=== PATIENT | female | born 1970 | race Caucasian/White ===

== ENCOUNTER 2017-03-04 23:29 | Emergency (ER) | payer MEDICARE ==
[~2017-03-04 23:29] MED LIST: ACETAMINOPHEN PO; ALBUTEROL17 GM INH; ALPRAZOLAM; ALPRAZOLAM PO; AMBIEN PO; AMITRIPTYLINE H25 MG PO; AMITRYPTYLINE PO; AZMACORT; BACTRIM DS TABL1 TA1 PO; CIPRO PO; CLEOCIN HCL300 M1 PO; DEMEROL PO; DESYREL100 MG PO; FIORINAL CAPSUL1 CAP PO; HYDROCODON-ACE1 EAC4 PO; IBUPROFEN PO; KETOPROFEN PO; KLONOPIN2 MG; KLONOPIN2 MG PO; NAPROSYN500 MG PO; PAXIL PO; PAXIL30 MG; PAXIL30 MG PO; PEN-VEE K PO; PERCOCET; PERCOCET10 PO; PHENERGAN DM1 ML PO; PHENERGAN PO; PROZAC PO; REMERON PO; REMERON15 MG; SEROQUEL PO; TEGRETOL-XR200 MG PO; TEMAZEPAM PO; TYLOX 5/500 CAP1 CAP PO; ULTRAM PO; VICODIN 5/1 TAB 5/50 PO; VICODIN PO; VITAMIN D400 UNI2 PO; XANAX2 MG; XANAX2 MG PO; ZANAFLEX PO; ZITHROMAX PO
== END 2017-03-04 23:57 | disposition home or self-care (01) ==
LOC: SED 23:29
DX: L03.115 Cellulitis of right lower limb (principal); F17.210 Nicotine dependence, cigarettes, uncomplicated; Z79.899 Other long term (current) drug therapy
CPT/HCPCS: 99282

== ENCOUNTER 2017-04-23 22:15 | Emergency (ER) | payer MEDICARE ==
--- NOTE | ~2017-04-23 | CT71 ---
[facility] A Service [facility] RADIOLOGY TEXT RESULTS PATIENT: JENNY CEDENO LOCATION: SED : 71 UNIT #: [id number] AGE: [address]: Jamison Watts MD SEX: F ORDER DR: [id number] [address] [address] [id number] E MR#: [id number] Acc #: [id number] NAME: JENNY CEDENO : 1970 SEX: F STUDY DATE/TIME: 04/24/2017 0:55 UNIT: SED ROOM: STUDY DESCRIPTION: CT Head Wo Contrast Attending Physician: Jamison Watts M.D. Ordering Physician: Jamison Watts M.D. Primary Care Physician: Sarah Sy M.D. MEDICAL IMAGING REPORT This report is preliminary unless electronic signature is present. EXAM CT scan of the head without contrast. HISTORY Headache and fever for 4 days. COMPARISON 06/08/2013 TECHNIQUE Unenhanced images were obtained through the brain. This CT exam was performed with one or more of the following radiation dose reduction techniques: automatic exposure control, adjustment of mA and/or kV according to patient size, and iterative reconstruction. FINDINGS There is mucosal thickening throughout the ethmoid and maxillary sinuses. The ventricles and subarachnoid spaces are normal. There are no masses or extraaxial fluid collections or hemorrhage. IMPRESSION 1. The brain is normal. 2. There is pansinusitis. Dictated by... lGenn Doshi M.D. THIS IS AN ELECTRONICALLY VERIFIED REPORT [facility] A Service of [facility] RADIOLOGY TEXT RESULTS PATIENT: JENNY CEDENO LOCATION: SED : 71 UNIT #: [id number] AGE: [address]: Jamison Watts MD SEX: F ORDER DR: Glenn Doshi M.D. at 04/24/2017 1:21 PM FEL/tmw TD: 04/24/2017 10:15 JOB #: [id number] MEDICAL IMAGING REPORT Page 1 of 1
== END 2017-04-24 02:57 | disposition home or self-care (01) ==
LOC: SED 22:15
DX: J01.40 Acute pansinusitis, unspecified (principal); G43.909 Migraine, unspecified, not intractable, without status migrainosus; F43.10 Post-traumatic stress disorder, unspecified; F31.9 Bipolar disorder, unspecified; Z79.899 Other long term (current) drug therapy
CPT/HCPCS: 36415; 70450; 96361; 96374; 96375; 99284; J1100; J1885; J2765